=== PATIENT | female | born 1955 | race Caucasian/White ===

== ENCOUNTER 2021-11-10 07:04 | Day surgery (SDC) | payer BC, OTHER ==
[~2021-11-10] VITALS: Ht 170.2 cm; Wt 54.0 kg
[~2021-11-10 07:04] MED LIST: BUSPIRONE15 MG PO; CITALOPRAM20 M1 PO; COLACE100 MG PO; D32000 UNIT PO; FENTANYL50 MCG/HR TD; HYDROCO/APAP1 TA9 PO; SPIRIVA RE2.5 MCG/AC IN; SYMBICORT 80-4.5MCG PO; XANAX0.5 MG PO; [UNRECOGNIZED DRUG - CODE] PO
[2021-11-10 11:24] VITALS: BP 98/63
== END 2021-11-10 11:09 | disposition home or self-care (01) | DRG 661 ==
LOC: ORM 07:04
PROVIDERS: ATTEND Urology
PROC: 0TC18ZZ Extirpation of Matter from Left Kidney, Via Natural or Artificial Opening Endoscopic (ICD-10-PCS; principal; 2021-11-10)
PROC: 0T778DZ Dilation of Left Ureter with Intraluminal Device, Via Natural or Artificial Opening Endoscopic (ICD-10-PCS; 2021-11-10)
DX: N20.0 Calculus of kidney (principal)
CPT/HCPCS: J1956; Q9967